=== PATIENT | female | born 1945 | race Hispanic/Latino ===

== ENCOUNTER 2020-11-17 22:23 | Emergency (ER) | payer OTHER ==
[2020-11-17 23:10] LABS: Urine Blood Negative (Negative); Urine Glucose Negative (Negative); Urine Protein Negative (Negative); Urine Specific Gravity 1.015 (1.005-1.030); Urine pH 5.5 (5.0-7.0)
[2020-11-17 23:32] LABS: Absolute Lymphocytes (CBC) 3.3 K/uL (0.7-4.9); Basophils % 0.5 % (0-1.3); Hematocrit 32.7 % (36.0-45.0); MPV 9.5 fL (7.6-11.3)
[2020-11-17] MEDS ORDERED: NA CHLORIDE 0.9% 500 ML ONE ×2 (23:37→23:51)
[2020-11-17 23:41] LABS: ALT/SGPT 18 U/L (12-78); AST/SGOT 18 U/L (15-37); Albumin 3.4 g/dL (3.4-5.0); Alkaline Phosphatase 90 U/L (45-117); BUN Blood Urea Nitrogen 19 mg/dL (7-18); Bicarbonate 28 mmol/L (21-32); Bilirubin Direct < 0.1 mg/dL (0-0.2); Bilirubin Total 0.2 mg/dL (0.2-1.0); Glucose Level 135 mg/dL (74-106); Lipase 166 U/L (73-393); Potassium 4.4 mmol/L (3.5-5.1); Protein, Total 7.5 g/dL (6.4-8.2); Sodium Level 138 mmol/L (136-145)
[2020-11-17] MEDS ORDERED: NA CHLORIDE 0.9% 1,000 ML ONE (23:51)
[2020-11-17 23:59] LABS: Urine Bacteria <20 /HPF (<20); Urine RBC <5 /HPF (NONE SEEN)
--- NOTE | 2020-11-18 01:10 | ER ---
Nurse's Notes [facility] Name: Anaya Mendoza Age: 75 yrs Sex: Female : 1945 Arrival Date: 11/17/2020 Time: 22:33 Bed 6 Private MD: Diagnosis: Urinary tract infection. Gastroenteritis Presentation: 11/17 22:41 Chief complaint: Patient states: left sided abdominal pain for 2 weeks, reports em diarrhea and nausea, denies fever, also reports generalized weakness. Coronavirus screen: Vaccine status: Patient reports receiving the 2nd dose of the covid vaccine. Ebola Screen: Patient negative for fever greater than or equal to 101.5 degrees Fahrenheit, and additional compatible Ebola Virus Disease symptoms Patient denies exposure to infectious person. Patient denies travel to an Ebola-affected area in the 21 days before illness onset. No symptoms or risks identified at this time. Initial Sepsis Screen: Does the patient meet any 2 criteria? No. Patient's initial sepsis screen is negative. Does the patient have a suspected source of infection? No. Patient's initial sepsis screen is negative. Risk Assessment: Do you want to hurt yourself or someone else? Patient reports no desire to harm self or others. Onset of symptoms was November 17, 2020. 22:41 Method Of Arrival: Wheelchair em 22:41 Acuity: CARISSA 3 em Historical: - Allergies: 22:43 No Known Allergies; em - PMHx: 22:43 Diabetes mellitus; Hypertensive disorder; em - PSHx: 22:43 hysterectomy; em - Immunization history:: Adult Immunizations up to date, Client reports receiving the 2nd dose of the Covid vaccine. - Social history:: Smoking status: Patient denies any tobacco usage or history of. Screenin:16 Abuse screen: Denies threats or abuse. Nutritional screening: No deficits noted. ea Tuberculosis screening: No symptoms or risk factors identified. Fall Risk IV access (20 points). Assessment: 23:17 General: Appears uncomfortable, Behavior is appropriate for age. Pain: Complains of ea pain in abdomen. Neuro: Level of Consciousness is awake, alert, obeys commands, Oriented to person, place, time. Cardiovascular: Patient's skin is warm and dry. Respiratory: Airway is patent Respiratory effort is even, unlabored, Respiratory pattern is regular, symmetrical. GI: Abdomen is non-distended. Derm: Skin is pink, warm \T\ dry. 11/18 01:38 Reassessment: Patient and/or family updated on plan of care and expected duration. Pain ea level reassessed. Patient is alert, oriented x 3, equal unlabored respirations, skin warm/dry/pink. Awaiting on IV antibiotics to complete. 03:02 Reassessment: Patient and/or family updated on plan of care and expected duration. Pain ea level reassessed. Patient is alert, oriented x 3, equal unlabored respirations, skin warm/dry/pink. Discharge instruction given to patient verbalized the understanding of instruction. Pt left ED ambulatory tolerating well. Vital Signs: 11/17 22:41 BP 138 / 48; Pulse 69; Resp 18; Temp 97.8; Pulse Ox 98% on R/A; Weight 68.04 kg; em 11/18 01:00 BP 134 / 56; Pulse 70; Resp 18; Pulse Ox 98% on R/A; wg 03:01 BP 139 / 65; Pulse 70; Resp 18; Pulse Ox 98% on R/A; ea ED Course: 11/17 22:33 Patient arrived in ED. cf2 22:43 Triage completed. em 22:43 Arm band placed on. em 23:00 Inserted saline lock: 20 gauge in right antecubital area, using aseptic technique. ea Blood collected. 23:10 Alberto Berrios MD is Attending Physician. pkl 23:15 Tito Scales, RN is Primary Nurse. em 23:16 Patient has correct armband on for positive identification. Bed in low position. Call ea light in reach. Side rails up X2. 11/18 00:09 CT Abd/Pelvis - IV Contrast Only In Process Unspecified. EDMS 01:37 No provider procedures requiring assistance completed. ea 01:46 IV discontinued, intact, bleeding controlled, No redness/swelling at site. Pressure ea dressing applied. 01:50 Primary Nurse role handed off by Tito Scales, RN ea Administered Medications: 11/17 23:16 Drug: NS 0.9% 500 ml Route: IV; Rate: bolus; Site: right antecubital; ea 11/18 01:38 Follow up: Response: No adverse reaction; IV Status: Completed infusion; IV Intake: ea 500ml 11/17 23:29 Drug: NS 0.9% 500 ml Route: IV; Rate: bolus; Infused Over: 15 mins; Site: right wg antecubital; 11/18 01:38 Follow up: Response: No adverse reaction; IV Status: Completed infusion; IV Intake: ea 500ml 11/17 23:33 Drug: NS 0.9% 1000 ml Route: IV; Rate: 100 ml/hr; Site: right antecubital; ea 11/18 01:39 Follow up: IV Status: Completed infusion ea 01:13 Drug: Cipro (ciprofloxacin) 400 mg Volume: 200 ml; Route: IVPB; Infused Over: 60 mins; ea Site: right antecubital; 03:03 Follow up: IV Status: Completed infusion ea Intake: 01:38 IV: 500ml; Total: 500ml. ea 01:38 IV: 500ml; Total: 1000ml. ea Outcome: 01:10 Discharge ordered by . pkelly 01:37 Discharge instructions given to patient, family, Instructed on discharge instructions, ea follow up and referral plans. medication usage, Demonstrated understanding of instructions, follow-up care, medications, Prescriptions given X 1. 01:46 Discharged to home ambulatory, with family. ea 01:46 Condition: stable 01:47 Patient left the ED. ea 03:03 Patient left the ED. ea Signatures: Dispatcher [employer] EDMS Alberto Berrios MD MD pkl Munoz, Edgar, RN RN em Antunez, Elena, RN RN ea Frazier, Celesta [facility] Ayad Carbone RN wg Corrections: (The following items were deleted from the chart) 01:52 01:46 Reassessment: Patient and/or family updated on plan of care and expected ea duration. Pain level reassessed. Patient is alert, oriented x 3, equal unlabored respirations, skin warm/dry/pink. Discharge instruction given to patient verbalized the understanding of instruction. Pt left ED ambulatory tolerating well, pt accompanied by family brittney
--- NOTE | 2020-11-18 01:10 | EDPHYS ---
Physician Documentation [facility] Name: Anaya Mendoza Age: 75 yrs Sex: Female : 1945 Arrival Date: 11/17/2020 Time: 22:33 Bed 6 Private MD: ED Physician Alberot Berrios HPI: 11/17 23:11 This 75 yrs old Female presents to ER via Wheelchair with complaints of pkl General Weakness, Diarrhea, LEFT SIDE ABDOMINAL PAIN. 23:20 The patient presents to the emergency department with nausea, diarrhea. Onset: The pkl symptoms/episode began/occurred 2 week(s) ago. Possible causes: unknown. 23:23 Associated signs and symptoms: Pertinent positives: abdominal pain. pkl Historical: - Allergies: 22:43 No Known Allergies; em - PMHx: 22:43 Diabetes mellitus; Hypertensive disorder; em - PSHx: 22:43 hysterectomy; em - Immunization history:: Adult Immunizations up to date, Client reports receiving the 2nd dose of the Covid vaccine. - Social history:: Smoking status: Patient denies any tobacco usage or history of. ROS: 23:23 Eyes: Negative for injury, pain, redness, and discharge, ENT: Negative for injury, pkl pain, and discharge, Neck: Negative for injury, pain, and swelling, Cardiovascular: Negative for chest pain, palpitations, and edema, Respiratory: Negative for shortness of breath, cough, wheezing, and pleuritic chest pain. 23:23 Abdomen/GI: Positive for abdominal pain, of the left upper quadrant. 23:23 Back: Negative for acute changes. 23:23 : Negative for urinary symptoms. 23:23 MS/extremity: Negative for acute changes. 23:23 Skin: Negative for rash. 23:23 Neuro: Negative for altered mental status, loss of consciousness. Exam: 23:23 Head/Face: Normocephalic, atraumatic. Eyes: Pupils equal round and reactive to light, pkl extra-ocular motions intact. Lids and lashes normal. Conjunctiva and sclera are non-icteric and not injected. Cornea within normal limits. Periorbital areas with no swelling, redness, or edema. ENT: Nares patent. No nasal discharge, no septal abnormalities noted. Tympanic membranes are normal and external auditory canals are clear. Oropharynx with no redness, swelling, or masses, exudates, or evidence of obstruction, uvula midline. Mucous membranes moist. Neck: Trachea midline, no thyromegaly or masses palpated, and no cervical lymphadenopathy. Supple, full range of motion without nuchal rigidity, or vertebral point tenderness. No Meningismus. Chest/axilla: Normal chest wall appearance and motion. Nontender with no deformity. No lesions are appreciated. Cardiovascular: Regular rate and rhythm with a normal S1 and S2. No gallops, murmurs, or rubs. Normal PMI, no JVD. No pulse deficits. Respiratory: Lungs have equal breath sounds bilaterally, clear to auscultation and percussion. No rales, rhonchi or wheezes noted. No increased work of breathing, no retractions or nasal flaring. 23:23 Abdomen/GI: Bowel sounds: normal, Palpation: soft, mild abdominal tenderness, in the left upper quadrant. 23:23 Back: Exam negative for acute changes. 23:23 : Exam negative for acute changes. 23:23 Musculoskeletal/extremity: Exam is negative for acute changes. 23:23 Skin: Exam negative for rash. 23:23 Neuro: Orientation: is normal, Mentation: is normal, Cranial nerves: grossly normal, Motor: is normal. Vital Signs: 22:41 BP 138 / 48; Pulse 69; Resp 18; Temp 97.8; Pulse Ox 98% on R/A; Weight 68.04 kg; em 11/18 01:00 BP 134 / 56; Pulse 70; Resp 18; Pulse Ox 98% on R/A; wg 03:01 BP 139 / 65; Pulse 70; Resp 18; Pulse Ox 98% on R/A; ea MDM: 11/17 23:10 Patient medically screened. pkl 11/18 00:37 Data reviewed: vital signs, nurses notes, lab test result(s), radiologic studies, CT pkl scan. 01:06 ED course: Discussed lab and CT Scan results with patient and sister. Advised to follow pkl up with PCP in 2 to 3 days. To return if necessary. Patient and sister understood instructions. 11/17 22:49 Order name: Basic Metabolic Panel; Complete Time: 00:37 ea 11/17 22:49 Order name: CBC with Diff; Complete Time: 00:37 ea 11/17 22:49 Order name: Hepatic Function; Complete Time: 00:37 ea 11/17 22:49 Order name: Lipase; Complete Time: 00:37 ea 11/17 23:10 Order name: Urine Dipstick-Ancillary; Complete Time: 23:22 EDMS 11/17 23:10 Order name: Urine Microscopic Only ea 11/17 23:11 Order name: Urine Microscopic Only; Complete Time: 00:37 EDMS 11/17 23:21 Order name: CT Abd/Pelvis - IV Contrast Only pkl 11/17 23:22 Order name: Lactate; Complete Time: 00:37 pkl 11/17 23:22 Order name: Blood Culture Adult (2) pkl 11/17 23:23 Order name: Urine Culture pkl 11/17 22:49 Order name: IV Saline Lock; Complete Time: 23:16 ea 11/17 22:49 Order name: Labs collected and sent; Complete Time: 23:16 ea Administered Medications: 11/17 23:16 Drug: NS 0.9% 500 ml Route: IV; Rate: bolus; Site: right antecubital; ea 11/18 01:38 Follow up: Response: No adverse reaction; IV Status: Completed infusion; IV Intake: ea 500ml 11/17 23:29 Drug: NS 0.9% 500 ml Route: IV; Rate: bolus; Infused Over: 15 mins; Site: right wg antecubital; 11/18 01:38 Follow up: Response: No adverse reaction; IV Status: Completed infusion; IV Intake: ea 500ml 11/17 23:33 Drug: NS 0.9% 1000 ml Route: IV; Rate: 100 ml/hr; Site: right antecubital; ea 11/18 01:39 Follow up: IV Status: Completed infusion ea 01:13 Drug: Cipro (ciprofloxacin) 400 mg Volume: 200 ml; Route: IVPB; Infused Over: 60 mins; ea Site: right antecubital; 03:03 Follow up: IV Status: Completed infusion ea Disposition Summary: 11/18/20 01:10 Discharge Ordered Location: Home pkl Problem: new pkl Symptoms: have improved pkl Condition: Stable pkl Diagnosis - Urinary tract infection. Gastroenteritis pkl Followup: pkl - With: Private Physician - When: 2 - 3 days - Reason: Re-evaluation by your physician Discharge Instructions: - Discharge Summary Sheet pkl Forms: - Medication Reconciliation Form pkl - Thank You Letter pkl - Antibiotic Education pkl - Prescription Opioid Use pkl Prescriptions: - Cipro 500 mg Oral Tablet - take 1 tablet by ORAL route every 12 hours for 7 days; 14 tablet; Refills: 0, pkl Product Selection Permitted Signatures: Dispatcher [employer] Alberto Murray MD MD pkl Tito Scales, RN Zoe Rodriguez RN RN ea Gamba, Liam, RN wg Corrections: (The following items were deleted from the chart) 11/17 23:24 23:20 Associated signs and symptoms: The patient has no apparent associated signs or pkl symptoms, pkl
[2020-11-18] MEDS ORDERED: CIPROFLOXACIN 400mg IV 400 MG/200 ML BAG IV ONE (01:32)
[2020-11-18 02:49] VITALS: TEMP 97.8; O2SAT 98
[2020-11-18 03:36] VITALS: BP 139/65
--- NOTE | 2020-11-18 10:48 | RAD REPORT ---
EXAM DESCRIPTION: CT - Abdomen Pelvis W Contrast - 11/18/2020 12:09 am CLINICAL HISTORY: 75 years, Female, ABD PAIN COMPARISON: None. TECHNIQUE: Contrast-enhanced images of the abdomen and pelvis were performed utilizing 2 mm slice th ickness at 2 mm interval reconstruction from the lung bases to the ischial tuberosities after the adm inistration of IV contrast. In addition multiplanar reformats in the coronal and sagittal plane were obtained and reviewed. This exam was performed according to our departmental dose-optimization protoc ol, which includes automated exposure control, adjustment of the mA and/or kV according to patient si ze and/or use of iterative reconstruction technique. FINDINGS: The lung bases demonstrate increased interstitial pulmonary markings for which the possibi lity of early fluid overload could be of consideration. There are coronary artery calcifications. The liver, gallbladder, pancreas, spleen and adrenal glands demonstrate to be unremarkable, no focal les ions are noted. The kidneys demonstrate normal uptake of contrast media with no evidence for hydronep hrosis. Grossly the unopacified stomach, small bowel and large bowel demonstrate to be within normal limits. There is no evidence for bowel dilatation/or free air. The appendix is normal. The urinar y bladder demonstrate to be unremarkable. The uterus is absent. There are no adnexal masses. The aorta demonstrate diffuse atherosclerotic disease extending into the aortic bifurcation/iliac arterie s. There is no retroperitoneal lymphadenopathy. There is no evidence for ascites or an/or significa nt abnormal fluid collections. The bone windows demonstrate minimal degenerative changes at L2/L3 wit h minimal posterior facet hypertrophy at L5/S1. IMPRESSION: No acute intra-abdominal pathology. Status post hysterectomy. Atherosclerotic disease of the aorta and its branches. Increased interstitial pulmonary markings for which the possibility of e patricia fluid overload could be of consideration. Electronically signed by: Venkatesh Oglesby MD 11/18/2020 12:29 AM CDT Due to temporary technical issues with the PACS/Fluency reporting system, reports are being signed by the in house radiologist without review as a courtesy to ensure prompt reporting. The interpreting r adiologist is fully responsible for the content of the report.
== END 2020-11-18 03:03 | disposition home or self-care (01) ==
LOC: ER 22:23
DX: N39.0 Urinary tract infection, site not specified (principal); K52.9 Noninfective gastroenteritis and colitis, unspecified; I10 Essential (primary) hypertension; E11.9 Type 2 diabetes mellitus without complications
CPT/HCPCS: 96365; 96361; 87040 ×2; 87088; 85025; 87086; 80048; 36415; 80076; 83605; 83690; 74177; 99284; 96366; Q9967; J7040 ×2; J7030; J0744; 81003; 81015